=== PATIENT | male | born 1960 | race Caucasian/White ===

== ENCOUNTER 2023-03-09 11:30 | Day surgery (SDC) | payer OTHER ==
[2023-03-06 10:47] LABS: Absolute Lymphocytes (CBC) 1.6 K/uL (0.7-4.9); Hematocrit 42.8 % (39.6-49.0); Lymphocytes % 19.8 % (15.3-44.8); MCV 92.8 fL (80-100); MPV 8.6 fL (7.6-11.3); Platelets 228 thou/uL (152-406); RBC Red Blood Cell Count 4.61 M/uL (4.33-5.43)
[2023-03-06 11:00] LABS: Protime INR 0.98
[2023-03-06 11:01] LABS: Potassium 4.5 mEq/L (3.5-5.1)
--- NOTE | 2023-03-06 11:04 | RAD REPORT ---
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 Lungs: No evidence of edema or pneumonia. Pleural: No significant pleural effusions or pneumothorax. Cardiac: The heart size is within normal limits. Mediastinum: Within normal limits. Bones: No acute fractures. Other: None IMPRESSION: No acute cardiopulmonary disease.
--- NOTE | 2023-03-06 13:49 | EKG ---
Test Date: 2023-03-06 Test Time: 10:33:01 [place] Operator: OUSMANE MEASUREMENT RESULTS: Intervals: Rate: 61 WY: 138 QRSD: 94 QT: 426 QTc: 428 [place]: P: 64 WY: 138 QRS: 65 T: 71 INTERPRETIVE STATEMENTS: Normal sinus rhythm Normal ECG No previous ECG available for comparison Electronically Signed On 03-06-23 13:48:04 CDT by Wisam Huntley
[2023-03-09] MEDS ORDERED: NA CHLORIDE 0.9% 500 ML ONE (12:28)
[2023-03-09] MEDS ORDERED: FENTANYL CITR 100 MCG/2 ML ONE (12:51)
[2023-03-09] MEDS ORDERED: HEPA 1000U/500MLS 2,000 UNIT/1,000 ML BAG IV ONE (12:51)
[2023-03-09] MEDS ORDERED: TICAGRELOR 90 MG TABLET PO ONE (12:52)
[2023-03-09] MEDS ORDERED: HEPARIN 10,000 UNIT/10 ML VIAL IV ONE (12:52)
[2023-03-09] MEDS ORDERED: CLOPIDOGREL 75 MG TABLET ONE (12:52)
[2023-03-09] MEDS ORDERED: MIDAZOLAM HCL 2 MG/2 ML INJ ONE (12:52)
[2023-03-09] MEDS ORDERED: ASPIRIN 325 MG TAB ONE (12:52)
[2023-03-09] MEDS ORDERED: VERAPAMIL HCL 10 MG/4 ML VIAL IV ONE (12:52)
[2023-03-09] MEDS ORDERED: HEPARIN 5000 UNIT/ML 1 ML VIAL ONE (12:52)
[2023-03-09] MEDS ORDERED: LIDOCAINE 1% 20 ML MDV ONE (12:53)
[2023-03-09] MEDS ORDERED: ATROPINE SULF 1 MG/10 ML SYR IV ONE (12:53)
[2023-03-09] MEDS ORDERED: REGADENOSON 0.4 MG/5 ML SYR IV ONE (13:31)
[2023-03-09 13:41] VITALS: TEMP 98; O2SAT 98
[2023-03-09 16:42] VITALS: BP 145/78
--- NOTE | 2023-03-09 20:04 | OP ---
Date of Procedure: 03/09/2023 Surgeon: ANGELIQUE PEREA Procedures Performed: 1.Selective coronary angiogram. 2.FFR of proximal LAD, moderate stenosis, was insignificant at 0.87. Indication: Chest pain with normal stress test. Access: Right radial artery 6-[place] closed with TR band. Complications: None. Bleeding: Less than 20 mL. Anesthesia: Total sedation time was 35 minutes. Description Of Procedure: After risks, benefits, alternatives were explained, patient agreed to proc edure and signed informal consent. Patient was brought into the cardiac catheterization laboratory, prepped and draped in the usual sterile fashion. Then, I accessed right radial artery using Toywheel c micropuncture kit, placed a 6-[place] Slender sheath, took 5-[place] 4.0 catheter into the aort ic root, engaged the left main and right coronary artery, took standard views and then gave systemic heparin to assure ACT level above 250, and took EBU3.5 guide into the aortic root and then took FFR w jolie into the aortic root and pressures were equalized and then engaged left main and advanced the wir e into the mid to distal LAD passing area of stenosis and a FFR was performed using Lexiscan that was negative at 0.87. Then, I removed the wire. Final angiogram was satisfactory. I removed the guide and the sheath and placed TR band for closure with good hemostasis. Findings: 1.Left main; large and normal. 2.LAD; large vessel proximal 50% to 60%, FFR was 0.87. Rest of the LAD is normal. Normal diagonal branches. 3.Left circumflex with mild luminal irregularities. 4.RCA; large and dominant with mild luminal irregularities. Conclusion: Moderate coronary artery disease involving the proximal LAD with negative FFR. Plan: Medical management. SR/MODL Voice ID: [id number] Report ID: [id number]
== END 2023-03-09 16:00 | disposition home or self-care (01) ==
LOC: CCL 11:30
PROVIDERS: ATTEND Internal Medicine
DX: I25.10 Atherosclerotic heart disease of native coronary artery without angina pectoris (principal); I67.89 Other cerebrovascular disease; E78.5 Hyperlipidemia, unspecified; Z91.040 Latex allergy status; Z87.891 Personal history of nicotine dependence; Z79.82 Long term (current) use of aspirin; Z79.02 Long term (current) use of antithrombotics/antiplatelets; Z79.899 Other long term (current) drug therapy
CPT/HCPCS: 36415; 71046; 76937; 80048; 85025; 85610; 85730; 93005; 93454; 93571; C1769; C1893; J0461; J1644; J2001; J2250; J2785; J3010; J7040; Q9967